=== PATIENT | male | born 1935 | race Two or more races ===

== ENCOUNTER 2018-09-03 09:42 | Emergency (ER) | payer OTHER, MEDICARE ==
[~2018-09-03] VITALS: Ht 165.1 cm; Wt 90.3 kg
--- NOTE | 2018-09-03 10:46 | PHYS DOC ---
Past Medical History Past Medical History: A-Fib, High Cholesterol, Hypertension Past Surgical History: Other Additional Past Surgical Histo: ABD Alcohol Use: None Drug Use: None Adult General Chief Complaint Chief Complaint: HEAD INJURY/TRAUMA HPI HPI 82-year-old male presents to ER via EMS following a mechanical fall. Patient states he tripped and fell just prior to arrival to ER and struck the left side of his forehead on the concrete. Patient has laceration to left eyebrow. Patient denies any loss of consciousness, dizziness, or symptoms prior to the fall. Patient states he is on daily Coumadin for history of A. fib. Patient is denying any other injuries. He denies neck, back, or extremity pain. Patient was ambulatory from EMS bay to triage with steady unassisted gait. Review of Systems Review of Systems Constitutional: Denies fatigue/LOC Eyes: Denies change in visual acuity, redness, or eye pain [] HENT: Denies nose bleed. Reports lt forehead/eye brow laceration w/tenderness at site Respiratory: Denies cough or shortness of breath [] Cardiovascular: Denies CP GI: Denies abdominal pain, nausea, vomiting, or incontinence of bowel/bladder : Denies dysuria or hematuria [] Musculoskeletal: Denies back/neckpain or joint pain [] Integument: Reports laceration lt eyebrow/forehead Neurologic: Denies focal weakness or sensory change. Reports generalized headache- denies dizziness/tinnitus All other systems were reviewed and found to be within normal limits, except as documented in this note. Current Medications Current Medications Current Medications Medications (Trade) Dose Ordered Sig/Gordo Start Time Stop Time Status Last Admin Dose Admin Diphtheria/ Tetanus/Acell Pertussis (Boostrix) 0.5 ml ONCE ONCE 09/03/18 11:30 09/03/18 11:34 DC 09/03/18 11:42 0.5 ML Lidocaine/ Epinephrine (LIDOCAINE 1%-EPI 1:100,000 Multi-Dose) 20 ml 1X ONCE 09/03/18 11:30 09/03/18 11:34 DC 09/03/18 11:41 20 ML Neomycin/ Polymyxin/ Bacitracin (Triple Antibiotic Ointment) 1 pkt 1X ONCE 09/03/18 13:00 09/03/18 13:04 DC 09/03/18 13:00 1 PKT Allergies Allergies Allergies Coded Allergies Type Severity Reaction Last Updated Verified No Known Drug Allergies 09/03/18 No Physical Exam Physical Exam Constitutional: Well developed, well nourished, no acute distress, non-toxic a ppearance. Clear speech HENT: Normocephalic, laceration to lt eye brow/forehead with sm. amt of bleeding at time of exam- gauze applied to site, bilateral ears normal, oropharynx moist, no oral exudates, nose normal. [] Eyes: 3mm PERRLA, EOMI- no pain with eye movements, no nystagmus, conjunctiva normal, no discharge. [] Neck: Normal range of motion, no tenderness on mid line cspine- no palp. deformity, supple, no stridor. Trachea midline Cardiovascular: Heart rate irregular rhythm, no murmur [] Lungs & Thorax: Bilateral breath sounds clear to auscultation- resp. equal/nonlabored. No chest wall tenderness or visible injury Abdomen: Bowel sounds normal, soft, no tenderness Skin: Warm, dry Back: No tenderness mid line spine, full ROM Extremities: Pelvis stable/nontender. No tenderness, no cyanosis, no clubbing, ROM intact, no edema. [] Neurologic: Alert and oriented X 3, normal motor function, normal sensory function, no focal deficits noted. [] Psychologic: Affect normal, judgement normal, mood normal. [] Laceration Repair by me: [id number] Anesthesia: 1% lidocaine w/epi locally Location: Eyebrow Foreign body: None detected after copious irrigation and exploration Technique: Simple Interrupted Sutures 5.0 nylon # 6 Complexity: No subcutaneous sutures/mucosal repair/edge excision Post Closure Length: 4 cm Patient's bleeding was easily controlled in the department and there is no indication of anemia. No evidence of compartment syndrome, neurologic injury, vascular injury, open joint, tendon laceration, or foreign body. Patient is appropriate for outpatient follow up. 48 hour wound check. Scar minimization instructions given. Current Patient Data Vital Signs Vital Signs Date Time Temp Pulse Resp B/P (MAP) Pulse Ox O2 Delivery O2 Flow Rate FiO2 09/03/18 12:49 82 123/83 (96) 97 Room Air 09/03/18 10:02 97.5 18 97.5 Lab Values Laboratory Tests Test 09/03/18 11:45 Prothrombin Time 27.5 SEC (11.7-14.0) H Prothrombin Time INR 2.6 (0.8-1.1) H EKG EKG [] Radiology/Procedures Radiology/Procedures PROCEDURE: CT HEAD AND CERVICAL SPINE WO CT HEAD AND CERVICAL SPINE WO Indication: Fell, left for head injury. Exposure: One or more of the following individualized dose reduction techniques were utilized for this examination: 1. Automated exposure control 2. Adjustment of the mA and/or kV according to patient size 3. Use of iterative reconstruction technique. Technique: Standard imaging without intravenous contrast. Head No evidence of acute intracranial hemorrhage, mass effect, midline shift or abnormal extra-axial fluid collection. Mild prominence of ventricles and sulci compatible with generalized atrophy. Orbits appear symmetric. Minimal swelling in the left frontal and periorbital region, presumably a mild hematoma. Partially visualized sinuses are clear. No evidence of a depressed skull fracture. IMPRESSION: 1. Minimal swelling or hematoma in the left frontal/periorbital region. 2. No evidence of acute intracranial hemorrhage or mass effect. Cervical spine Ring of C1 is intact. Cervico-occipital junction is intact. C1-C2 is symmetric. Vertebral body height is maintained. No evidence of acute fracture. Multilevel degenerative spondylosis. There is at least mild-moderate spinal stenosis and up to severe neural foraminal stenosis at multiple levels bilaterally. There is some hypertrophic change and calcification about the odontoid process with degenerative findings, appear chronic. Minimal retrolisthesis of C5 on C6 is likely degenerative. Straightening of the cervical lordosis. Prevertebral soft tissues demonstrate no significant swelling or hematoma. Thyroid gland appears symmetric. Lung apices are grossly clear. IMPRESSION: 1. Degenerative spondylosis with stenosis. 2. No evidence of acute fracture or traumatic subluxation. Electronically signed by: Mike Garvey MD (09/03/2018 11:16 AM) [facility] DICTATED and SIGNED BY: MIKE GARVEY MD DATE: 09/03/18 1116 Course & Med Decision Making Course & Med Decision Making Pertinent Imaging studies reviewed. (See chart for details) Pt was evaluated in the ER for a mechanical fall in which he struck the lt side of his head on the concrete. He reports he had glasses on at time of fall and f eels that is most likely what caused the laceration to lt eye brow. Pt is on Coumadin daily and so came to ER requesting to have CT done. Pt was A&Ox3 with no focal neuro deficits and had no mid line Cspine tenderness. With age and Coumadin use CT was obtained- no acute findings on head/Cspine imaging for hemorrhage/fx. CT results were discussed with pt. Laceration was repaired with sutures. Pt had no active bleeding following lac repair. INR was 2.6. Tetanus was updated while in the ER. Pt will f/u with his PCP for suture removal. Pt reports he has someone to stay with him- head injury precautions discussed with pt and will provide info with d/c paperwork. Education provided on s&s to return to ER for and d/c instructions were discussed. At time of d/c discussion pt reports having no pain- denying any dizziness/eye pain/OVERTON. Dragon Disclaimer Dragon Disclaimer This electronic medical record was generated, in whole or in part, using a voice recognition dictation system. Departure Departure Impression: Primary Impression: Head injury Additional Impression: Laceration Disposition: 01 HOME, SELF-CARE Condition: STABLE Patient Instructions: Head Injury, Adult, Laceration Care, Adult, Sutured Wound Care Additional Instructions: Tylenol as needed for pain as directed on container. Monitor wound for signs of infection and follow-up with your primary care physician for wound patient as needed. Sutures need to be removed at her primary care physician's office and 7-10 days. Problem Qualifiers VÍCTOR CARRILLO APRN Sep 03, 2018 10:46
--- NOTE | 2018-09-03 11:19 | RAD ---
CT HEAD AND CERVICAL SPINE WO Indication: Fell, left for head injury. Exposure: One or more of the following individualized dose reduction techniques were utilized for this examination: 1. Automated exposure control 2. Adjustment of the mA and/or kV according to patient size 3. Use of iterative reconstruction technique. Technique: Standard imaging without intravenous contrast. Head No evidence of acute intracranial hemorrhage, mass effect, midline shift or abnormal extra-axial fluid collection. Mild prominence of ventricles and sulci compatible with generalized atrophy. Orbits appear symmetric. Minimal swelling in the left frontal and periorbital region, presumably a mild hematoma. Partially visualized sinuses are clear. No evidence of a depressed skull fracture. IMPRESSION: 1. Minimal swelling or hematoma in the left frontal/periorbital region. 2. No evidence of acute intracranial hemorrhage or mass effect. Cervical spine Ring of C1 is intact. Cervico-occipital junction is intact. C1-C2 is symmetric. Vertebral body height is maintained. No evidence of acute fracture. Multilevel degenerative spondylosis. There is at least mild-moderate spinal stenosis and up to severe neural foraminal stenosis at multiple levels bilaterally. There is some hypertrophic change and calcification about the odontoid process with degenerative findings, appear chronic. Minimal retrolisthesis of C5 on C6 is likely degenerative. Straightening of the cervical lordosis. Prevertebral soft tissues demonstrate no significant swelling or hematoma. Thyroid gland appears symmetric. Lung apices are grossly clear. IMPRESSION: 1. Degenerative spondylosis with stenosis. 2. No evidence of acute fracture or traumatic subluxation. Electronically signed by: Mike Garvey MD (09/03/2018 11:16 AM) [facility]
[2018-09-03] MEDS ORDERED: LIDOCAINE 1%/EPI 1:100,000 20 ML VIAL. INJ ONE (11:30)
[2018-09-03] MEDS ORDERED: DIPHTH,PERTUSS(ACELL),TET TOX 0.5 ML DISP.SYRIN. VAX IM ONE (11:30)
[2018-09-03 12:12] LABS: PROTHROMBIN TIME PATIENT 27.5 SEC (11.7-14.0)
[2018-09-03 12:49] VITALS: BP 123/83
[2018-09-03] MEDS ORDERED: NEOMY/BACITR/POLYMYXIN OINT PACKET. TP ONE (13:00)
== END 2018-09-03 13:32 | disposition home or self-care (01) ==
LOC: ER 09:42
DX: S01.112A Laceration without foreign body of left eyelid and periocular area, initial encounter (principal); R51 Headache; M54.2 Cervicalgia; I48.91 Unspecified atrial fibrillation; E78.00 Pure hypercholesterolemia, unspecified; I10 Essential (primary) hypertension; W01.198A Fall on same level from slipping, tripping and stumbling with subsequent striking against other object, initial encounter; Y93.89 Activity, other specified; Y92.89 Other specified places as the place of occurrence of the external cause; Y99.8 Other external cause status
CPT/HCPCS: 12013; 36415; 70450; 72125; 85610; 90471; 90715; 99285; J3490

== ENCOUNTER → 2020-06-14 | Outpatient (CLI) | payer OTHER, MEDICARE ==
[2020-03-11 11:05] VITALS: BP 105/56
[~2020-06-14] MED LIST: AMLO-186 PO; AMOX1TAB58 PO; CARV25TA2 PO; FAMO20TA5 PO; FURO40TA4 PO; HYDR-2761 PO; LISI-130 PO; POTA10TA12 PO; SIMV10TA15 PO; WARF-31 PO
--- NOTE | 2020-06-15 09:43 | RAD ---
BILATERAL LOWER EXTREMITY DUPLEX ARTERY ULTRASOUND Indication: Reason: WOUND CELLULITIS; Leg pain per pt; / Spl. Instructions: / History: Comparison: None. Procedure: Real-time grayscale, color flow Doppler, and Doppler spectral waveform analysis of the art erial system of the lower extremity is performed. Findings: There is moderate amount of atherosclerotic plaque throughout the bilateral lower extremities. Waveforms in the right lower extremity are all triphasic. There is elevated peak systolic velocity in the dorsalis pedis artery, 244 cm/s. No other elevated peak systolic velocity is seen. Waveforms in the left lower extremity are predominantly biphasic. The left dorsalis pedis artery wave form is monophasic. There is no focal elevated peak systolic velocity. IMPRESSION: 1. There is elevated peak systolic velocity of the right dorsalis pedis artery suggesting stenosis. 2. There is transition to monophasic waveform in the left dorsalis pedis artery suggesting there is inflow stenosis. Electronically signed by: Joel Petit MD (06/15/2020 9:41 AM) [id number]
== END ==
LOC: US 12:38
PROVIDERS: ATTEND Physician Assistant
DX: L03.116 Cellulitis of left lower limb (principal); L03.115 Cellulitis of right lower limb; M79.604 Pain in right leg; M79.605 Pain in left leg
CPT/HCPCS: 93925